=== PATIENT | male | born 1995 | race Caucasian/White ===

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

== ENCOUNTER 2019-11-17 15:24 | Emergency (ER) | payer OTHER ==
[2019-11-17 17:36] VITALS: BP 124/76
--- NOTE | 2019-11-18 06:42 | ED ---
Throat Pain/Nasal Congestion - HPI Summary HPI Summary: This patient is a 24-year-old otherwise healthy male who presents to the ED with concern for a jaw injury. Patient states yesterday he was riding his horse when the horse jerked his head back, hitting the patient in the chin. He states this caused immediate discomfort to the left TMJ. Continues to eat and drink okay since this time. Continues to be able to talk without worsening discomfort. He denies any pain directly over the chin or to the right TMJ. He is able to open and close his mouth, however this causes some amount of discomfort. He feels the area is slightly swollen. He also states he was concerned with a possible concussion due to this. He states immediately following he was slightly dizzy for a few seconds, but this resolved spontaneously. He denies any other injuries or pain. Discomfort rated a 3/10. - History of Current Complaint Chief Complaint: EDHeadInjury Time Seen by Provider: 11/17/19 15:49 Hx Obtained From: Patient Onset/Duration: Sudden Onset, Lasting Hours Associated Signs And Symptoms: Negative: Dysphagia, FB Sensation, Wheezing, Hoarseness, Sinus Discomfort, Nasal Discharge - Epiglottits Risk Factors Epiglottis Risk Factors: Negative - Allergies/Home Medications Allergies/Adverse Reactions: Allergies Allergy/AdvReac Type Severity Reaction Status Date / Time advil Allergy Severe Difficulty Uncoded 11/17/19 15:33 Breathing PMH/Surg Hx/FS Hx/Imm Hx Previously Healthy: Yes Endocrine/Hematology History: Denies: Hx Diabetes, Hx Thyroid Disease Cardiovascular History: Denies: Hx Hypertension Respiratory History: Denies: Hx Asthma, Hx Chronic Obstructive Pulmonary Disease (COPD) GI History: Denies: Hx Ulcer - Immunization History Date of Influenza Vaccine: 2018 Hx Pertussis Vaccination: No Immunizations Up to Date: Yes Infectious Disease History: No Infectious Disease History: Denies: Hx Clostridium Difficile, Hx Hepatitis, Hx Human Immunodeficiency Virus (HIV), Hx of Known/Suspected MRSA, Hx Shingles, Hx Tuberculosis, Hx Known/ Suspected VRE, Hx Known/Suspected VRSA, History Other Infectious Disease, Traveled Outside the [place] in Last 30 Days - Family History Known Family History: Negative: Diabetes - Social History Occupation: Unemployed Lives: With Family Alcohol Use: None Alcohol Amount: weekends Hx Substance Use: No Substance Use Type: Reports: None Hx Tobacco Use: No Smoking Status (MU): Never Smoked Tobacco Review of Systems Negative: Fever, Chills, Fatigue, Skin Diaphoresis ENT: Other - left TMJ pain Negative: Palpitations, Chest Pain Negative: Shortness Of Breath, Cough Genitourinary: Negative Positive: no symptoms reported, see HPI Negative: Arthralgia, Myalgia Skin: Negative All Other Systems Reviewed And Are Negative: Yes Physical Exam Triage Information Reviewed: Yes Vital Signs On Initial Exam: Initial Vitals Temp Pulse Resp BP Pulse Ox 97.3 F 67 19 135/74 97 11/17/19 15:29 11/17/19 15:29 11/17/19 15:29 11/17/19 15:29 11/17/19 15:29 Vital Signs Reviewed: Yes Appearance: Positive: Well-Appearing, Well-Nourished Skin: Positive: Warm, Skin Color Reflects Adequate Perfusion Head/Face: Positive: Normal Head/Face Inspection Eyes: Positive: Conjunctiva Clear Dental: Positive: Other - left TMJ pain Neck: Positive: Supple, No Lymphadenopathy Respiratory/Lung Sounds: Positive: Clear to Auscultation, Breath Sounds Present Cardiovascular: Positive: RRR, Pulses are Symmetrical in both Upper and Lower Extremities Musculoskeletal: Positive: Normal, Strength/ROM Intact Neurological: Positive: Speech Normal Psychiatric: Positive: Normal, Affect/Mood Appropriate AVPU Assessment: Alert Procedures - Sedation Patient Received Moderate/Deep Sedation with Procedure: No Diagnostics - Vital Signs Vital Signs Temp Pulse Resp BP Pulse Ox 11/17/19 17:35 98.3 F 64 18 124/76 99 11/17/19 15:29 97.3 F 67 19 135/74 97 - Laboratory Lab Statement: Any lab studies that have been ordered have been reviewed, and results considered in the medical decision making process. EENT Course/Dx - Course Course Of Treatment: This patient is evaluated for left-sided jaw pain. On physical examination, patient appears well. He is able to eat, drink, talk without discomfort. He states he feels the area over the left TMJ is slightly swollen. No erythema, abrasions or contusions are noted. There are no signs of trauma. Denies any headache, visual changes, confusion, memory loss. TMJs bilaterally appear in place with no evidence of dislocation. Mandible without tenderness. No clicking or shifting noted. X-ray of the left TMJ obtained which shows no evidence of fracture or dislocation. Encouraged ibuprofen and follow-up with PCP if any symptoms worsen. - Differential Diagnoses Differential Diagnoses: Other - mandible pain, mandible fracture, contusion - Diagnoses Provider Diagnoses: Temporomandibular joint (TMJ) pain Discharge ED - Sign-Out/Discharge Documenting (check all that apply): Patient Departure - Discharge Plan Condition: Stable Disposition: HOME Patient Education Materials: Contusion in Adults (ED) Referrals: [facility] - [facility] [Primary Care Provider] - Additional Instructions: Ibuprofen 600mg three times daily - Billing Disposition and Condition Condition: STABLE Disposition: Home
== END 2019-11-17 17:35 | disposition home or self-care (01) ==
LOC: ED 15:24
DX: R68.84 Jaw pain (principal); Z88.7 Allergy status to serum and vaccine
CPT/HCPCS: 70330; 99284